=== PATIENT | female | born 1975 | race Native Hawaiian/Other Pacific Islander ===

== ENCOUNTER 2019-09-08 21:28 | Emergency (ER) | payer OTHER ==
[2019-09-08 21:33] VITALS: BP 109/73
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
[2019-09-08] MEDS ORDERED: IBUPROFEN 600 MG TAB PO ONE ×2 (21:53→21:56)
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
== END 2019-09-09 01:35 | disposition home or self-care (01) ==
LOC: ED 21:28
DX: S60.221A Contusion of right hand, initial encounter (principal); S80.212A Abrasion, left knee, initial encounter; F17.200 Nicotine dependence, unspecified, uncomplicated; V89.2XXA Person injured in unspecified motor-vehicle accident, traffic, initial encounter; Y93.89 Activity, other specified; Y92.410 Unspecified street and highway as the place of occurrence of the external cause; Y99.8 Other external cause status